=== PATIENT | male | born 1965 | race Two or more races ===

== ENCOUNTER 2016-10-20 12:51 | Inpatient (IN) | payer MEDICARE, MEDICAID ==
[~2016-10-20] VITALS: Ht 167.6 cm; Wt 72.6 kg
[~2016-10-20 12:51] MED LIST: ABILIFY20 MG; BACTRIM 400-801 EACH; BACTRIM DS TAB1 EAC1 ORAL; CEFEPIME-D2 GM/50 ML IVPB; CIPRO500 MG PO; LEVOFLOXACIN500 MG ORAL; NORCO 10/3251 EA ORAL; NORVIR100 M2 PO; OXYCODONE HCL30 MG ORAL; OXYCONTIN PO; OXYCONTIN30 MG ORAL; PREZISTA800 MG PO; PROSCAR5 MG ORAL; STRIBILD TABLE1 EACH; TIVICAY50 MG; TRUVADA1 TAB; VANCOMYCIN1 GM/2502 IVPB; ZYVOX600 MG ORAL
[2016-10-20] MEDS ORDERED: Levalbuterol Inh UD 1.25mg/0.5ml HHN ONE (13:15)
[2016-10-20] MEDS ORDERED: Ipratropium 0.02% Inh Soln 2.5ml UD HHN ONE (13:15)
[2016-10-20 14:18] VITALS: BP 111/64
[2016-10-20 14:28] LABS: MEAN CORPUSCULAR HEMOGLOBIN 32.6 PG (27.0-31.0); MEAN CORPUSCULAR HGB CONC 34.2 G/DL (32.0-36.0); MEAN CORPUSCULAR VOLUME 95 FL (80-99); MEAN PLATELET VOLUME 7.2 FL (6.5-10.1); PLATELET COUNT 135 K/UL (150-450); RED BLOOD COUNT 4.35 M/UL (4.70-6.10); RED CELL DISTRIBUTION WIDTH 12.5 % (11.6-14.8)
--- NOTE | 2016-10-20 14:30 | Emergency Room Report ---
History of Present Illness General Chief Complaint: Upper Respiratory Illness Source: Patient (EAN DIAZ M.D.) Present Illness HPI 50-year-old no presents to ED for evaluation. States the last few days he's had a productive cough, chills, bodyaches and fever. States he feels very weak with no appetite. Denies any nausea or vomiting. Denies any diarrhea. States he did not receive a flu vaccination. History of HIV testing she is compliant with his medications. No other aggravating relieving factors. Denies any other associated symptoms. PMD is Dr. Nicole (EAN DIAZ M.D.) Allergies: Coded Allergies: No Known Allergies (Unverified , 10/26/13) Patient History Past Medical History: HIV Past Surgical History: none Pertinent Family History: none Social History: Denies: alcohol use, drug use, smoking Immunizations: UTD Reviewed Nursing Documentation: PMH: Agreed, PSxH: Agreed (EAN DIAZ M.D.) Nursing Documentation-PMH Past Medical History: No History, Except For Hx Cardiac Problems: No - HIV Hx Cancer: No Hx Gastrointestinal Problems: No Hx Neurological Problems: No Hx Headaches: Yes (EAN DIAZ M.D.) Review of Systems All Other Systems: negative except mentioned in HPI (EAN DIAZ M.D.) Physical Exam Vital Signs Date Time Temp Pulse Resp B/P Pulse Ox O2 Delivery O2 Flow Rate FiO2 10/20/16 13:01 99.0 113 18 87/57 91 Room Air 10/20/16 13:30 2.0 Sp02 EP Interpretation: reviewed, normal General Appearance: no apparent distress, alert, GCS 15, non-toxic Head: normocephalic Eyes: bilateral eye PERRL, bilateral eye normal inspection ENT: normal ENT inspection Neck: normal inspection Respiratory: chest non-tender, crackles, speaking full sentences Cardiovascular #1: tachycardia Gastrointestinal: normal bowel sounds, non tender, soft, non-distended, no guarding, no rebound Rectal: deferred Genitourinary: no CVA tenderness Musculoskeletal: normal inspection Neurologic: alert, oriented x3, responsive, motor strength/tone normal, sensory intact, speech normal Psychiatric: normal inspection Skin: normal inspection Lymphatic: normal inspection (EAN DIAZ M.D.) Medical Decision Making Diagnostic Impression: Primary Impression: Influenza A Additional Impressions: HIV disease dehydration Hyponatremia ARF (acute renal failure) Qualified Codes: N17.9 - Acute kidney failure, unspecified ER Course Hospital Course 50-year-old male presents to ED with cough, fever, dizziness and weakness Differential diagnoses include: Pneumonia, CHF exacerbation, pneumothorax, fluid overload Clinical course Patient placed on stretcher. On secured entrance monitor. After initial history and physical, I ordered nebulizer treatments. I ordered labs, IV fluids, EKG, chest x-ray, blood cultures, UA. Labs -no leukocytosis, hemoglobin/hematocrit stable, Na 130, Cr 1.3, lactate okay troponins negative CXR - R atelectasis, L effusion EKG - NSR, tachycardia, no ischemic changes Influenza A + tachycardia improving with IV fluids. given abx. given tamiflu Case discussed with Dr. Tapia (covering for Dr Nicole) and he agreed to the patient to his service for further care and support I feel this is a highly complex case requiring extensive working including EKG/ Rhythm strip, Xray/CT/US, Blood/urine lab work, repeat exams while in ED, and administration of strong opiates/narcotics for pain control, admission to hospital or close patient follow up. Diagnosis - influenza A, HIV, dehydration, hyponatremia, ARF Patient admitted to floor in serious condition Labs Test 10/20/16 13:38 10/20/16 13:40 10/20/16 14:05 White Blood Count 9.0 K/UL (4.8-10.8) Red Blood Count 4.35 M/UL (4.70-6.10) Hemoglobin 14.2 G/DL (14.2-18.0) Hematocrit 41.4 % (42.0-52.0) Mean Corpuscular Volume 95 FL (80-99) Mean Corpuscular Hemoglobin 32.6 PG (27.0-31.0) Mean Corpuscular Hemoglobin Concent 34.2 G/DL (32.0-36.0) Red Cell Distribution Width 12.5 % (11.6-14.8) Platelet Count 135 K/UL (150-450) Mean Platelet Volume 7.2 FL (6.5-10.1) Neutrophils (%) (Auto) % (45.0-75.0) Lymphocytes (%) (Auto) % (20.0-45.0) Monocytes (%) (Auto) % (1.0-10.0) Eosinophils (%) (Auto) % (0.0-3.0) Basophils (%) (Auto) % (0.0-2.0) Differential Total Cells Counted 100 Neutrophils % (Manual) 75 % (45-75) Lymphocytes % (Manual) 17 % (20-45) Monocytes % (Manual) 4 % (1-10) Eosinophils % (Manual) 0 % (0-3) Basophils % (Manual) 0 % (0-2) Band Neutrophils 4 % (0-8) Platelet Estimate Adequate Platelet Morphology Normal Red Blood Cell Morphology Normal Sodium Level 130 mEQ/L (135-145) Potassium Level 4.0 mEQ/L (3.4-4.9) Chloride Level 88 mEQ/L (98-107) Carbon Dioxide Level 25 mEQ/L (20-30) Anion Gap 17 (5-15) Blood Urea Nitrogen 13 mg/dL (7-23) Creatinine 1.3 mg/dL (0.7-1.2) Estimat Glomerular Filtration Rate 58.2 mL/min (>60) Glucose Level 107 mg/dL (74-106) Lactic Acid Level 0.90 mmol/L (0.66-2.22) Calcium Level 8.3 mg/dL (8.6-10.2) Total Bilirubin 0.5 mg/dL (0.0-1.2) Aspartate Amino Transf (AST/SGOT) 28 U/L (5-40) Alanine Aminotransferase (ALT/SGPT) 18 U/L (3-41) Alkaline Phosphatase 106 U/L (40-129) Total Creatine Kinase 55 U/L (38-174) Creatine Kinase MB < 1.5 ng/mL (< 6.7) Creatine Kinase MB Relative Index 2.7 Troponin I < 0.30 ng/mL (<=0.30) Pro-B-Type Natriuretic Peptide 101 pg/mL (0-125) Total Protein 7.3 g/dL (6.6-8.7) Albumin 4.2 g/dL (3.5-5.2) Globulin 3.1 g/dL Albumin/Globulin Ratio 1.3 (1.0-2.7) Lactate Dehydrogenase 170 U/L (135-230) Urine Color Yellow Urine Appearance Clear Urine pH 6 (4.5-8.0) Urine Specific Breaks 1.020 (1.005-1.035) Urine Protein 2+ (NEGATIVE) Urine Glucose (UA) Negative (NEGATIVE) Urine Ketones Negative (NEGATIVE) Urine Occult Blood 1+ (NEGATIVE) Urine Nitrite Negative (NEGATIVE) Urine Bilirubin 1+ (NEGATIVE) Urine Ictotest Negative Urine Urobilinogen 1 MG/DL (0.0-1.0) Urine Leukocyte Esterase 1+ (NEGATIVE) Urine RBC 0-2 /HPF (0 - 0) Urine WBC 0-2 /HPF (0 - 0) Urine Squamous Epithelial Cells Few /LPF (NONE/OCC) Urine Bacteria Few /HPF (NONE) (EAN DIAZ M.D.) ER Course The patient was endorsed to me by Dr. Diaz. Patient was noted to have a laboratory testing which showed evidence of influenza. Laboratory testing showed mild elevation of the creatinine. The patient was given IV fluids. The patient started on IV antibiotics. Patient was given Tamiflu for positive influenza. The patient is being admitted to the hospital because of a history of immunocompromise. Dr. Dagoberto Tapia was contacted for inpatient management after discussion with Dr. Boston gomes (Dung Juarez) EKG Diagnostic Results Rate: tachycardiac Rhythm: NSR ST Segments: no acute changes ASA given to the pt in ED: No (EAN DIAZ M.D.) Rhythm Strip Diag. Results EP Interpretation: yes Rhythm: NSR, no PVC's, no ectopy (EAN DIAZ M.D.) Chest X-Ray Diagnostic Results EP Interpretation: Yes Findings: no pneumothorax, no acute cardiopulmonary disease, other - R atelectasis. L effusion Number of Views: 1 (EAN DIAZ M.D.) Last Vital Signs Date Time Temp Pulse Resp B/P Pulse Ox O2 Delivery O2 Flow Rate FiO2 10/20/16 14:18 100.8 101 18 111/64 97 Nasal Cannula 2.0 Status: improved (EAN DIAZ M.D.) Disposition: ADMITTED INPATIENT Condition: Serious Referrals: CHINO NICOLE (PCP) EAN DIAZ M.D. Oct 20, 2016 14:30 Dung Juarez Oct 20, 2016 16:35
[2016-10-20 14:44] LABS: TROPONIN I < 0.30 ng/mL (<=0.30)
[2016-10-20 14:46] LABS: APPEARANCE,URINE CLEAR; KETONES,URINE NEGATIVE (NEGATIVE); LEUKOCYTE ESTERASE ,URINE 1+ (NEGATIVE); NITRITE,URINE NEGATIVE (NEGATIVE); PH,URINE 6 (4.5-8.0); PROTEIN,URINE 2+ (NEGATIVE); UROBILINOGEN,URINE 1 MG/DL (0.0-1.0)
[2016-10-20 14:47] LABS: ALANINE AMINOTRANSFERASE 18 U/L (3-41); ALBUMIN/GLOBULIN RATIO 1.3 (1.0-2.7); ANION GAP 17 (5-15); ASPARTATE AMINO TRANSFERASE 28 U/L (5-40); CALCIUM 8.3 mg/dL (8.6-10.2); CARBON DIOXIDE 25 mEQ/L (20-30); CHLORIDE 88 mEQ/L (98-107); CREATININE 1.3 mg/dL (0.7-1.2); GLOMERULAR FILTRATION RATE 58.2 mL/min (>60); HEMOLYSIS 32; SODIUM 130 mEQ/L (135-145); TOTAL PROTEIN 7.3 g/dL (6.6-8.7)
[2016-10-20 14:56] LABS: BACTERIA,URINE FEW /HPF; RBC,URINE 0-2 /HPF (0 - 0); SQUAMOUS EPITHELIAL CELL,UR FEW /LPF (NONE/OCC); WBC,URINE 0-2 /HPF (0 - 0)
[2016-10-20 14:58] LABS: ICTOTEST NEGATIVE
[2016-10-20 14:58] LABS: CKMB < 1.5 ng/mL (< 6.7)
[2016-10-20 15:00] LABS: BAND NEUTROPHILS % (MANUAL) 4 % (0-8); LYMPHOCYTES % (MANUAL) 17 % (20-45); NEUTROPHILS % (MANUAL) 75 % (45-75); TOTAL CELLS COUNTED 100
[2016-10-20] MEDS ORDERED: Azithromycin 500 MG in NS 275 ML IV ONE (15:00)
[2016-10-20] MEDS ORDERED: Oseltamivir 75mg cap ORAL ONE (15:00)
[2016-10-20] MEDS ORDERED: cefTRIAXone 1 GM in NS 55 ML IV ONE (15:00)
[2016-10-20 15:01] LABS: BASOPHILS % (MANUAL) 0 % (0-2); EOSINOPHILS % (MANUAL) 0 % (0-3); PLATELET ESTIMATE ADEQUATE; PLATELET MORPHOLOGY NORMAL
[2016-10-20] MEDS ORDERED: Azithromycin Inj IV ONE (15:07)
[2016-10-20 16:42] VITALS: BP 95/55
[2016-10-20 20:00] VITALS: BP 108/61
[2016-10-21] VITALS: BP 104/67
[2016-10-21 04:00] VITALS: BP 113/67
[2016-10-21 07:53] LABS: BASOPHILS % (AUTO) 0.4 % (0.0-2.0); EOSINOPHILS % (AUTO) 0.1 % (0.0-3.0); LYMPHOCYTES % (AUTO) 18.7 % (20.0-45.0); MEAN CORPUSCULAR HEMOGLOBIN 32.4 PG (27.0-31.0); MEAN CORPUSCULAR VOLUME 95 FL (80-99); MEAN PLATELET VOLUME 6.5 FL (6.5-10.1); MONOCYTES % (AUTO) 8.3 % (1.0-10.0); NEUTROPHILS % (AUTO) 72.4 % (45.0-75.0); PLATELET COUNT 124 K/UL (150-450); RED BLOOD COUNT 4.22 M/UL (4.70-6.10); RED CELL DISTRIBUTION WIDTH 12.5 % (11.6-14.8); WHITE BLOOD COUNT 6.5 K/UL (4.8-10.8)
[2016-10-21 08:08] LABS: ANION GAP 12 (5-15); CALCIUM 8.1 mg/dL (8.6-10.2); CARBON DIOXIDE 27 mEQ/L (20-30); CHLORIDE 94 mEQ/L (98-107); CREATININE 0.7 mg/dL (0.7-1.2); GLOMERULAR FILTRATION RATE > 60 mL/min (>60); HEMOLYSIS 1; POTASSIUM 3.9 mEQ/L (3.4-4.9); SODIUM 133 mEQ/L (135-145)
[2016-10-21 08:15] VITALS: BP 109/71
[2016-10-21] MEDS: ARIPiprazole 10mg tab ORAL SCH (10:01)
[2016-10-21] MEDS: Oseltamivir 75mg cap ORAL SCH ×2 (10:01→17:30)
[2016-10-21 12:15] VITALS: BP 98/61
[2016-10-21] MEDS: Ritonavir 100mg tab ORAL SCH ×2 (12:59→21:00)
[2016-10-21] MEDS: Dolutegravir Sodium 50mg tab ORAL SCH (13:00)
--- NOTE | 2016-10-21 13:12 | History & Physical ---
History and Physical History & Physicial Dictated no. [id number]. DEBORAH MILLER Oct 21, 2016 13:12
--- NOTE | 2016-10-21 14:03 | Infectious Diseases Prog Note ---
Assessment/Plan Assessment/Plan Full consult dictated: A) 1) influenza A + infection 2) possible cap pna, uri/bronchitis 3) hiv, anti-retrovirals, cd4 > 200 per patient (patient does not remember exact level) P) 1) tamiflu, rocephin, azithromycin 2) check sc, labs and chest x-ray 3) thank you Subjective Allergies: Coded Allergies: No Known Allergies (Unverified , 10/26/13) Objective Vital Signs Last 24 Hour Vital Signs Date Time Temp Pulse Resp B/P Pulse Ox O2 Delivery O2 Flow Rate FiO2 10/21/16 12:15 97.9 86 21 98/61 97 Room Air 10/21/16 08:15 97.6 69 20 109/71 97 Nasal Cannula 2.0 10/21/16 07:48 97.6 10/21/16 04:00 99.1 80 20 113/67 96 Room Air 10/21/16 00:00 99.3 78 20 104/67 100 Room Air 2.0 10/20/16 20:00 98.2 87 20 108/61 98 Nasal Cannula 2.0 10/20/16 16:44 99.9 93 17 95/55 97 Nasal Cannula 2.0 10/20/16 16:42 99.9 93 17 95/55 97 Nasal Cannula 2.0 10/20/16 14:18 100.8 101 18 111/64 97 Nasal Cannula 2.0 Height (Feet): 5 Height (Inches): 6.00 Weight (Pounds): 160 Microbiology Date/Time Source Procedure Growth Status 10/20/16 13:38 Nasal Nares Influenza Types A,B Antigen (JANA) - Final Complete Laboratory Tests Test 10/20/16 14:05 10/21/16 06:20 Urine Color Yellow Urine Appearance Clear Urine pH 6 (4.5-8.0) Urine Specific Beattie 1.020 (1.005-1.035) Urine Protein 2+ (NEGATIVE) H Urine Glucose (UA) Negative (NEGATIVE) Urine Ketones Negative (NEGATIVE) Urine Occult Blood 1+ (NEGATIVE) H Urine Nitrite Negative (NEGATIVE) Urine Bilirubin 1+ (NEGATIVE) H Urine Ictotest Negative Urine Urobilinogen 1 MG/DL (0.0-1.0) H Urine Leukocyte Esterase 1+ (NEGATIVE) H Urine RBC 0-2 /HPF (0 - 0) H Urine WBC 0-2 /HPF (0 - 0) Urine Squamous Epithelial Cells Few /LPF (NONE/OCC) Urine Bacteria Few /HPF (NONE) White Blood Count 6.5 K/UL (4.8-10.8) Red Blood Count 4.22 M/UL (4.70-6.10) L Hemoglobin 13.7 G/DL (14.2-18.0) L Hematocrit 40.2 % (42.0-52.0) L Mean Corpuscular Volume 95 FL (80-99) Mean Corpuscular Hemoglobin 32.4 PG (27.0-31.0) H Mean Corpuscular Hemoglobin Concent 34.0 G/DL (32.0-36.0) Red Cell Distribution Width 12.5 % (11.6-14.8) Platelet Count 124 K/UL (150-450) L Mean Platelet Volume 6.5 FL (6.5-10.1) Neutrophils (%) (Auto) 72.4 % (45.0-75.0) Lymphocytes (%) (Auto) 18.7 % (20.0-45.0) L Monocytes (%) (Auto) 8.3 % (1.0-10.0) Eosinophils (%) (Auto) 0.1 % (0.0-3.0) Basophils (%) (Auto) 0.4 % (0.0-2.0) Sodium Level 133 mEQ/L (135-145) L Potassium Level 3.9 mEQ/L (3.4-4.9) Chloride Level 94 mEQ/L (98-107) L Carbon Dioxide Level 27 mEQ/L (20-30) Anion Gap 12 (5-15) Blood Urea Nitrogen 9 mg/dL (7-23) Creatinine 0.7 mg/dL (0.7-1.2) Estimat Glomerular Filtration Rate > 60 mL/min (>60) Glucose Level 94 mg/dL (74-106) Calcium Level 8.1 mg/dL (8.6-10.2) L Current Medications Medications (Trade) Dose Ordered Sig/Jeff Route PRN Reason Start Time Stop Time Status Last Admin Dose Admin Acetaminophen (Tylenol) 650 mg Q4H PRN ORAL Mild Pain/Temp > 100.5 10/21/16 01:45 11/20/16 01:44 10/21/16 06:49 Aripiprazole (Abilify) 20 mg DAILY ORAL 10/21/16 09:00 11/20/16 08:59 10/21/16 10:01 Azithromycin/ Dextrose (Zithromax/D5W) 275 ml @ 275 mls/hr Q24HRS IV 10/21/16 18:00 10/27/16 18:59 Ceftriaxone Sodium 1 gm/ Dextrose 55 ml @ 110 mls/hr Q24H IVPB 10/21/16 16:00 10/28/16 15:59 Darunavir (Prezista) 800 mg DAILY ORAL 10/21/16 12:00 11/20/16 11:59 10/21/16 12:59 Dolutegravir Sodium (Tivicay) 50 mg DAILY ORAL 10/21/16 12:00 11/20/16 11:59 10/21/16 13:00 Finasteride (Proscar) 5 mg DAILY ORAL 10/21/16 09:00 11/20/16 08:59 10/21/16 10:01 Oseltamivir Phosphate (Tamiflu) 75 mg TWICE A DAY ORAL 10/21/16 09:00 10/26/16 08:59 10/21/16 10:01 Ritonavir (Norvir) 100 mg Q12HR ORAL 10/21/16 12:00 11/20/16 11:59 10/21/16 12:59 EDGAR BLACK 5, 2017 14:03
[2016-10-21] MEDS: cefTRIAXone 1 GM in D5W 55 ML IVPB SCH (15:41)
[2016-10-21 16:00] VITALS: BP 123/70
[2016-10-21] MEDS: Azithromycin 500 MG in D5W 275 ML IV SCH (17:28)
[2016-10-21 20:00] VITALS: BP 101/68
[2016-10-22] VITALS: BP 94/55
--- NOTE | 2016-10-22 00:18 | History and Physical Report ---
DATE OF ADMISSION: 10/20/2016 CHIEF COMPLAINT: This is a 50-year-old male with a history of human immunodeficiency virus, who presents with complaint of cough, fever, chills, and phlegm for two days. HISTORY OF PRESENT ILLNESS: Began two days prior to admission. The patient began to experience a cough. The patient states cough is productive of a greenish sputum. The patient also complains of subjective fevers and chills. The patient presented to [facility]. The patient was found to be influenza A positive. The patient was admitted for influenza A and pneumonia. PAST MEDICAL HISTORY: Significant for: 1. Human immunodeficiency virus. 2. AIDS-defining illness (Kaposi's sarcoma.) 3. Hepatitis C. 4. Bipolar schizoaffective disorder. PAST SURGICAL HISTORY: The patient denies. CURRENT MEDICATIONS: 1. Abilify 20 mg one tablet p.o. daily. 2. Prezista 800 mg one tablet p.o. daily. 3. Tivicay 50 mg one tablet p.o. daily. 4. Finasteride 5 mg one tablet p.o. daily. 5. Oxycodone 30 mg one tablet p.o. q.4 h. p.r.n. 6. Norvir 100 mg one tablet p.o. daily. ALLERGIES: No known drug allergies. SOCIAL HISTORY: The patient is single and is disabled. The patient admits to tobacco use of one-half pack per day. The patient admits to occasional alcohol use. The patient previously has smoked methamphetamine, has not smoked methamphetamine for some time. REVIEW OF SYSTEMS: Constitutional: The patient denies weight loss or weight gain. The patient does complain of fevers and chills as above. HEENT: The patient denies ear or throat pain. The patient denies headache. Cardiovascular: The patient denies palpitations or chest pain. Chest: The patient complains of cough as above. The patient denies wheezes. Abdomen: The patient denies nausea, vomiting, diarrhea, or constipation. Genitourinary: The patient denies dysuria or increased frequency of urination. Neuromuscular: The patient denies seizures or generalized weakness. PHYSICAL EXAMINATION: VITAL SIGNS: Temperature 98.2 degrees, respirations 20, pulse 87, blood pressure 106/61, and pulse ox 98% on two liters nasal cannula. GENERAL: The patient is a well-developed and well-nourished male, who is somnolent, but arousable. HEENT: Pupils are equal and responsive to light and accommodation. Extraocular movements are intact. NECK: Supple without lymphadenopathy. CHEST: Decreased breath sounds in bilateral bases. Otherwise, clear to auscultation bilaterally without wheezes or rales. CARDIOVASCULAR: Regular rhythm and rate. S1 and S2 are normal without murmurs, rubs, or gallops. ABDOMEN: Soft, nontender, and nondistended. Positive bowel sounds. No evidence of hepatosplenomegaly. Currently, no rebound or guarding noted. EXTREMITIES: Negative for clubbing, cyanosis, or edema. RECTAL/GENITALIA: Refused. NEUROLOGIC: Cranial nerves II through XII are grossly intact without focal deficits. Motor strength is 5/5 bilaterally. Deep tendon reflexes are 2+ plantar. LABORATORY STUDIES: WBC 9.7, hemoglobin 14.2, hematocrit 41.4, and platelets 135,000. Sodium 130, potassium 4.0, chloride 88, CO2 25, BUN 13, creatinine 1.3, and glucose 107. A chest x-ray is pending. An influenza culture revealed influenza A positive. ASSESSMENT: This is a 50-year-old male. 1. Influenza A positive. 2. Pneumonia. 3. Acquired immunodeficiency syndrome. 4. Kaposi's sarcoma. 5. Hepatitis C. 6. Bipolar schizoaffective disorder. TREATMENT: 1. Influenza A. An Infectious Disease consultation is pending with Dr. Calderon. The patient has been started empirically on Tamiflu. We will follow recommendations Dr. Calderon. 2. Pneumonia. The patient has been started empirically on azithromycin and ceftriaxone intravenously. Pneumonia may be viral secondary to influenza A versus bacterial. A sputum culture is pending. An Infectious Disease consultation has been obtained with Dr. Calderon. 3. Hepatitis C. The patient is status post interferon treatment. 4. Bipolar schizoaffective disorder. Continue Abiliy. Dagoberto Tapia M.D. DR: OLGA JOB#: [id number] CC:
--- NOTE | 2016-10-22 02:38 | Consultation ---
DATE OF CONSULTATION: INFECTIOUS DISEASE CONSULTATION CONSULTING PHYSICIAN: Lynnette Calderon M.D. ATTENDING PHYSICIAN: Dagoberto Tapia M.D. REASON FOR CONSULTATION: Influenza A infection, possible pneumonia, community-acquired pneumonia, and antibiotic management. CHIEF COMPLAINT: The patient's chief complaint coming in to the hospital is fevers, congestion, shortness of breath, and yellow green sputum production. HISTORY OF PRESENT ILLNESS: This is a very pleasant 50-year-old male with history of HIV. He states his T-cell count is over 200. Over the last several days, the patient noted cough, congestion, and yellow green sputum production. The patient was admitted and had fevers. It was noted on influenza screen that the patient was influenza A positive, so he has influenza A infection. The patient certainly has respiratory infection, bronchitis, and also could have community-acquired pneumonia. Chest x-ray yesterday was reviewed and showed linear opacities, most likely cannot rule out, but it could be infiltrate, cannot rule that out, it cannot be excluded. An Infectious Disease consultation was requested. The patient will be placed on Rocephin, azithromycin, and Tamiflu. Sputum culture has been ordered. MAR was noted. Orders were noted. Notes and records were reviewed. Case was discussed with RN. Case was also discussed with Dr. Tapia and also discussed with the patient's primary HIV doctor in the outpatient setting, Dr. Gregory Mead. PAST MEDICAL HISTORY: Past medical history includes the history of the following: The patient has a past medical history of HIV. His T-cell count is over 200. He does not know the exact amount. He also is on antiretroviral therapy. He also has a history of Kaposi's sarcoma. He has a history of headaches. No history of diabetes or hypertension. No history of coronary artery disease. Other past medical history, he has a history of AIDS in the past, history of hepatitis C, history of Dietz catheter infection, hyponatremia, history of dehydration, anxiety, and history of PICC lines in the past. Please see past medical history in medical order. MEDICATIONS: Upon reviewing the MAR, the patient is on the following medications. The patient is on erythromycin, Rocephin, Tivicay, Prezista, Norvir, Tamiflu, Proscar, Abilify, and Tylenol. Please see medications in medical order. ALLERGIES: No known drug allergies. No antibiotic allergies. SOCIAL HISTORY: Positive for smoking. No alcohol or drug abuse. FAMILY HISTORY: Noncontributory. No mention of exposure to tuberculosis or cancer. REVIEW OF SYSTEMS: Constitutional: Fatigue, fevers, and chills. No weight loss. No night sweats. Head And Neck: No thrush or dysphagia. Cardiac: No chest pain or palpitations. GI: No nausea, vomiting, or diarrhea. : No dysuria or frequency. No Dietz. Pulmonary: Congestion, shortness of breath, and yellow green sputum production. Skin: No rash or itching. Extremities: No extremity pain. Neurologic: No seizures. PHYSICAL EXAMINATION: VITAL SIGNS: T-max is 100.8 degrees, temperature 97.9 degrees, pulse rate 60, respiratory rate 21, blood pressure 98/61, and saturation 97%. GENERAL: Alert and responsive, in no acute distress. HEENT: Head and Neck: Oral exam, no thrush. Eye exam, no icterus. Neck is supple. No JVD. No sinus tenderness. Normocephalic. No facial droop. No neck stiffness. HEART: Regular. No gallop or murmur. No friction or rub. LUNGS: Bilateral rhonchi and possible rales at the bases. ABDOMEN: Soft. Positive bowel sounds. Nontender. SKIN: No rash or dermatitis. MUSCULOSKELETAL: No effusion or contractures. Legs are without cellulitis. PERIPHERAL VASCULAR: No cyanosis or gangrene. RECTAL: Deferred. GENITOURINARY: No Dietz. LINE: Line site is without phlebitis. No CVA tenderness. NEUROLOGIC: Intact and nonfocal. Alert and oriented x3. LABORATORY DATA: Laboratory data is as follows: White count on admission 9.0 and now white count is 6.5, and hemoglobin 13.7. Creatinine is 0.7 and on admission was 1.3. Sodium 130 and now it is 133. LFTs are noted. Urinalysis was 0 to 2 white blood cells. Cultures are pending. Sputum culture is pending. Influenza screen was positive for influenza and negative for influenza B. Chest x-ray from 10/20/2016 was noted. The patient had poor inspiration passage, which could represent atelectasis, could not exclude infiltrate on the left. ASSESSMENT AND PLAN: 1. The patient has a influenza A viral infection. The patient has possibly community-acquired pneumonia, upper respiratory infection, bronchitis, and fevers. Continue Rocephin, azithromycin, and Tamiflu to cover community-acquired pneumonia and influenza A viral infection. The patient is at a significant risk to have community-acquired pneumonia with history of human immunodeficiency virus and also influenza A. Continue antibiotics, Rocephin and azithromycin. Check sputum culture, labs, and chest x-ray. 2. The patient will need Tamiflu for a total of five days for the influenza viral infection. 3. Isolation for influenza A. 4. Human immunodeficiency virus and acquired immunodeficiency syndrome. T-cell count over 200. Continue on antiretroviral therapy. 5. History of hepatitis C. 6. History of Perm-A-Cath infection. 7. History of Kaposi's sarcoma. 8. History of dehydration. 9. History of . 10. No diabetes or hypertension. 11. History of cancer, which includes Kaposi's sarcoma. 12. No history of cerebrovascular accident. 13. Allergies are negative. 14. MAR was noted. 15. Case was discussed with RN. 16. Socially positive for smoking in the past. No alcohol or drug abuse. 17. Family history is noncontributory. 18. Continue treatment per primary independent beauty consultant, Dr. Tapia. 19. Case was discussed with Dr. Dagoberto Tapia. Thank you. I will follow. Lynnette Calderon M.D. DR: SHELLY JOB#: [id number] CC:
[2016-10-22 04:00] VITALS: BP 121/78
[2016-10-22 06:00] VITALS: BP 127/78
[2016-10-22 07:09] LABS: BASOPHILS % (AUTO) 0.5 % (0.0-2.0); LYMPHOCYTES % (AUTO) 28.4 % (20.0-45.0); MEAN CORPUSCULAR HEMOGLOBIN 32.2 PG (27.0-31.0); MEAN CORPUSCULAR VOLUME 95 FL (80-99); MEAN PLATELET VOLUME 6.9 FL (6.5-10.1); NEUTROPHILS % (AUTO) 59.1 % (45.0-75.0); PLATELET COUNT 143 K/UL (150-450); RED BLOOD COUNT 4.72 M/UL (4.70-6.10); RED CELL DISTRIBUTION WIDTH 12.3 % (11.6-14.8); WHITE BLOOD COUNT 4.5 K/UL (4.8-10.8)
[2016-10-22 07:23] LABS: ANION GAP 12 (5-15); CALCIUM 8.9 mg/dL (8.6-10.2); CARBON DIOXIDE 28 mEQ/L (20-30); CHLORIDE 97 mEQ/L (98-107); CREATININE 0.7 mg/dL (0.7-1.2); GLOMERULAR FILTRATION RATE > 60 mL/min (>60); HEMOLYSIS 5; SODIUM 137 mEQ/L (135-145)
--- NOTE | 2016-10-22 08:00 | Diagnostic Imaging Report ---
Indication: Shortness of breath Technique: XRAY CHEST 1 V Comparison: 06/25/15 Findings: There is poor inspiration with linear opacities of the lung bases. Cardiomediastinal silhouette is stable. There is no pneumothorax or obvious pleural effusion. Osseous structures are stable. Impression: Poor inspiration with linear lung base opacities which could represent atelectasis. Subtle infiltrate in the left base not excluded. Clinical correlation/followup recommended.
[2016-10-22 08:02] VITALS: BP 110/58
[2016-10-22] MEDS: ARIPiprazole 10mg tab ORAL SCH (09:30)
[2016-10-22] MEDS: Oseltamivir 75mg cap ORAL SCH ×2 (09:30→18:28)
[2016-10-22] MEDS: Dolutegravir Sodium 50mg tab ORAL SCH (09:31)
[2016-10-22] MEDS: Ritonavir 100mg tab ORAL SCH ×2 (09:32→20:40)
--- NOTE | 2016-10-22 11:28 | Internal Med Progress Note ---
Subjective Date of Service: Oct 22, 2016 Physician Name Deborah Miller Attending Physician Deborah Miller Current Medications Medications (Trade) Dose Ordered Sig/Jeff Route PRN Reason Start Time Stop Time Status Last Admin Dose Admin Acetaminophen (Tylenol) 650 mg Q4H PRN ORAL Mild Pain/Temp > 100.5 10/21/16 01:45 11/20/16 01:44 10/21/16 06:49 Aripiprazole (Abilify) 20 mg DAILY ORAL 10/21/16 09:00 11/20/16 08:59 10/22/16 09:30 Azithromycin/ Dextrose (Zithromax/D5W) 275 ml @ 275 mls/hr Q24HRS IV 10/21/16 18:00 10/27/16 18:59 10/21/16 17:28 Ceftriaxone Sodium 1 gm/ Dextrose 55 ml @ 110 mls/hr Q24H IVPB 10/21/16 16:00 10/28/16 15:59 10/21/16 15:41 Darunavir (Prezista) 800 mg DAILY ORAL 10/21/16 12:00 11/20/16 11:59 10/22/16 09:42 Dolutegravir Sodium (Tivicay) 50 mg DAILY ORAL 10/21/16 12:00 11/20/16 11:59 10/22/16 09:31 Finasteride (Proscar) 5 mg DAILY ORAL 10/21/16 09:00 11/20/16 08:59 10/22/16 09:31 Oseltamivir Phosphate (Tamiflu) 75 mg TWICE A DAY ORAL 10/21/16 09:00 10/26/16 08:59 10/22/16 09:30 Ritonavir (Norvir) 100 mg Q12HR ORAL 10/21/16 12:00 11/20/16 11:59 10/22/16 09:32 Allergies: Coded Allergies: No Known Allergies (Unverified , 10/26/13) ROS Limited/Unobtainable: No Constitutional: Reports: chills, fever HEENT: Reports: no symptoms Cardiovascular: Reports: no symptoms Respiratory: Reports: no symptoms Gastrointestinal/Abdominal: Reports: no symptoms Genitourinary: Reports: no symptoms Neurologic/Psychiatric: Reports: no symptoms Subjective 50 YO M with HIV/AIDS admitted with Influenza A and pneumonia. C/O cough Objective Last Vital Signs Date Time Temp Pulse Resp B/P Pulse Ox O2 Delivery O2 Flow Rate FiO2 10/22/16 08:02 97.7 76 20 110/58 96 Room Air 10/21/16 08:15 2.0 General Appearance: WD/WN, no apparent distress, alert EENT: PERRL/EOMI, normal ENT inspection Neck: non-tender, normal alignment, supple Cardiovascular: normal peripheral pulses, normal rate, regular rhythm, no gallop/murmur, no JVD Respiratory/Chest: no accessory muscle use, crackles/rales, rhonchi - bilaterally, expiratory wheezing Abdomen: normal bowel sounds, non tender, soft, no organomegaly, no mass Extremities: normal range of motion Neurologic: artificial fly tier II-XII grossly normal, no motor/sensory deficits Skin: normal pigmentation, warm/dry Laboratory Tests Test 10/22/16 06:00 White Blood Count 4.5 K/UL (4.8-10.8) L Red Blood Count 4.72 M/UL (4.70-6.10) Hemoglobin 15.2 G/DL (14.2-18.0) Hematocrit 44.8 % (42.0-52.0) Mean Corpuscular Volume 95 FL (80-99) Mean Corpuscular Hemoglobin 32.2 PG (27.0-31.0) H Mean Corpuscular Hemoglobin Concent 34.0 G/DL (32.0-36.0) Red Cell Distribution Width 12.3 % (11.6-14.8) Platelet Count 143 K/UL (150-450) L Mean Platelet Volume 6.9 FL (6.5-10.1) Neutrophils (%) (Auto) 59.1 % (45.0-75.0) Lymphocytes (%) (Auto) 28.4 % (20.0-45.0) Monocytes (%) (Auto) 11.0 % (1.0-10.0) H Eosinophils (%) (Auto) 1.0 % (0.0-3.0) Basophils (%) (Auto) 0.5 % (0.0-2.0) Sodium Level 137 mEQ/L (135-145) Potassium Level 4.0 mEQ/L (3.4-4.9) Chloride Level 97 mEQ/L (98-107) L Carbon Dioxide Level 28 mEQ/L (20-30) Anion Gap 12 (5-15) Blood Urea Nitrogen 9 mg/dL (7-23) Creatinine 0.7 mg/dL (0.7-1.2) Estimat Glomerular Filtration Rate > 60 mL/min (>60) Glucose Level 94 mg/dL (74-106) Calcium Level 8.9 mg/dL (8.6-10.2) Microbiology Date/Time Source Procedure Growth Status 10/20/16 13:42 Blood Blood Culture - Preliminary NO GROWTH AFTER 24 HOURS Resulted 10/20/16 13:38 Blood Blood Culture - Preliminary NO GROWTH AFTER 24 HOURS Resulted 10/20/16 14:05 Nasal Nares MRSA Culture - Final NO METHICILLIN RESISTANT STAPH AUREUS... Complete 10/20/16 13:38 Nasal Nares Influenza Types A,B Antigen (JANA) - Final Complete Intake and Output 10/21/16 10/22/16 19:00 07:00 Intake Total 480 ml 120 ml Balance 480 ml 120 ml Intake Oral 480 ml 120 ml # Voids 2 Assessment/Plan Problem List: (1) Hepatitis C (2) Schizoaffective disorder, bipolar type Assessment & Plan: Continue abilify (3) AIDS Assessment & Plan: Cont HAART per ID (4) HIV disease (5) Kaposi sarcoma (6) Influenza A Assessment & Plan: Continue Tamiflu. See ID note. (7) Fever (8) Pneumonia Assessment & Plan: Continue ceftriaxone and azithromycin per ID Status: not improved DEBORAH MILLER Oct 22, 2016 11:28
[2016-10-22 11:50] VITALS: BP 124/75
--- NOTE | 2016-10-22 12:36 | Diagnostic Imaging Report ---
Indication: Chest Pain Comparison: 10/20/16 A single view chest radiograph was obtained. Findings: Previously demonstrated left basilar lung disease has resolved. Cardiomediastinal appearance is within normal limits for age. Pulmonary vascularity is appropriate. The diaphragmatic contour is smooth and costophrenic angles are sharp. No pleural effusions are identified. The bones are unremarkable. Impression: No acute findings
[2016-10-22 16:00] VITALS: BP 106/68
[2016-10-22] MEDS: cefTRIAXone 1 GM in D5W 55 ML IVPB SCH (16:16)
[2016-10-22] MEDS: Azithromycin 500 MG in D5W 275 ML IV SCH (18:29)
[2016-10-23 00:43] VITALS: BP 115/44
[2016-10-23 04:00] VITALS: BP 93/51
[2016-10-23 07:19] LABS: ANION GAP 15 (5-15); CALCIUM 8.8 mg/dL (8.6-10.2); CARBON DIOXIDE 25 mEQ/L (20-30); CHLORIDE 96 mEQ/L (98-107); CREATININE 0.6 mg/dL (0.7-1.2); GLOMERULAR FILTRATION RATE > 60 mL/min (>60); HEMOLYSIS 1; POTASSIUM 3.5 mEQ/L (3.4-4.9); SODIUM 136 mEQ/L (135-145)
[2016-10-23 07:25] LABS: BASOPHILS % (AUTO) 0.8 % (0.0-2.0); LYMPHOCYTES % (AUTO) 29.9 % (20.0-45.0); MEAN CORPUSCULAR HEMOGLOBIN 32.3 PG (27.0-31.0); MEAN CORPUSCULAR HGB CONC 34.3 G/DL (32.0-36.0); MEAN CORPUSCULAR VOLUME 94 FL (80-99); MEAN PLATELET VOLUME 6.3 FL (6.5-10.1); NEUTROPHILS % (AUTO) 58.3 % (45.0-75.0); PLATELET COUNT 179 K/UL (150-450); RED BLOOD COUNT 4.81 M/UL (4.70-6.10); RED CELL DISTRIBUTION WIDTH 12.2 % (11.6-14.8)
[2016-10-23 08:00] VITALS: BP 112/67
[2016-10-23] MEDS: Ritonavir 100mg tab ORAL SCH ×2 (09:57→20:54)
[2016-10-23] MEDS: Oseltamivir 75mg cap ORAL SCH ×2 (09:57→17:39)
[2016-10-23] MEDS: ARIPiprazole 10mg tab ORAL SCH (09:57)
[2016-10-23] MEDS: Dolutegravir Sodium 50mg tab ORAL SCH (09:57)
[2016-10-23 12:00] VITALS: BP 126/71
--- NOTE | 2016-10-23 12:53 | Infectious Diseases Prog Note ---
Assessment/Plan Assessment/Plan ASSESSMENT AND PLAN: 1. Influenza A viral infection with uri/bronchitis, chest x-ray negative for pna - clinically much improved, fevers resolved 2. continue abx for 3 days more - on rocephin, azithromycin and tamiflu, can transition to oral abx soon 3. Isolation for influenza A. 4. Human immunodeficiency virus and acquired immunodeficiency syndrome. T-cell count over 200. Continue on antiretroviral therapy. 5. History of hepatitis C. 6. History of Perm-A-Cath infection. 7. History of Kaposi's sarcoma. 8. History of dehydration. 9. History of cad and headaches 10. No diabetes or hypertension. 11. History of cancer, which includes Kaposi's sarcoma. 12. No history of cerebrovascular accident. 13. Allergies are negative. 14. MAR was noted. 15. Case was discussed with RN. 16. Socially positive for smoking in the past. No alcohol or drug abuse. 17. Family history is noncontributory. 18. Continue treatment per primary enterprise resource planning consultant, Dr. Tapia. 19. Case was discussed with Dr. Dagoberto Tapia. 20 d/w patient and questions answered Subjective Constitutional: Reports: fatigue - better, Denies: fever HEENT: Denies: congestion Respiratory: Denies: shortness of breath Cardiovascular: Denies: chest pain Gastrointestinal/Abdominal: Denies: diarrhea, nausea, vomiting Genitourinary: Denies: dysuria, frequency, hematuria Neurologic: Denies: headache Skin: Denies: rash Hematologic: Denies: bleeding Musculoskeletal: Denies: pain Allergies: Coded Allergies: No Known Allergies (Unverified , 10/26/13) Objective Vital Signs Last 24 Hour Vital Signs Date Time Temp Pulse Resp B/P Pulse Ox O2 Delivery O2 Flow Rate FiO2 10/23/16 08:00 96.3 70 18 112/67 96 Room Air 10/23/16 04:00 97.0 65 19 93/51 97 Room Air 10/23/16 00:43 97.0 76 20 115/44 95 Room Air 10/22/16 21:41 97.0 10/22/16 16:00 97.0 81 20 106/68 98 Room Air Height (Feet): 5 Height (Inches): 6.00 Weight (Pounds): 160 General Appearance: no acute distress HEENT: normocephalic, atraumatic, anicteric, mucous membranes moist, PERRL, EOMI, pharynx normal, supple, no JVD Respiratory/Chest: lungs clear, normal breath sounds, no respiratory distress, no accessory muscle use, crackles/rales - resolved Cardiovascular: normal rate, regular rhythm, no gallop/murmur, no JVD Abdomen: normal bowel sounds, soft, non tender, no organomegaly, non distended Genitourinary: other - no bay Extremities: no cyanosis Skin: no rash Neurologic/Psychiatric: drafter cartographic II-XII grossly normal, alert, oriented x 3, responsive Lymphatic: no neck adenopathy Musculoskeletal: no effusion Objective chest x-ray - negative Microbiology Date/Time Source Procedure Growth Status 10/20/16 13:42 Blood Blood Culture - Preliminary NO GROWTH AFTER 48 HOURS Resulted 10/20/16 13:38 Blood Blood Culture - Preliminary NO GROWTH AFTER 48 HOURS Resulted 10/20/16 14:05 Nasal Nares MRSA Culture - Final NO METHICILLIN RESISTANT STAPH AUREUS... Complete 10/20/16 13:38 Nasal Nares Influenza Types A,B Antigen (JANA) - Final Complete Laboratory Tests Test 10/23/16 05:00 White Blood Count 5.0 K/UL (4.8-10.8) Red Blood Count 4.81 M/UL (4.70-6.10) Hemoglobin 15.6 G/DL (14.2-18.0) Hematocrit 45.3 % (42.0-52.0) Mean Corpuscular Volume 94 FL (80-99) Mean Corpuscular Hemoglobin 32.3 PG (27.0-31.0) H Mean Corpuscular Hemoglobin Concent 34.3 G/DL (32.0-36.0) Red Cell Distribution Width 12.2 % (11.6-14.8) Platelet Count 179 K/UL (150-450) Mean Platelet Volume 6.3 FL (6.5-10.1) L Neutrophils (%) (Auto) 58.3 % (45.0-75.0) Lymphocytes (%) (Auto) 29.9 % (20.0-45.0) Monocytes (%) (Auto) 9.0 % (1.0-10.0) Eosinophils (%) (Auto) 2.0 % (0.0-3.0) Basophils (%) (Auto) 0.8 % (0.0-2.0) Sodium Level 136 mEQ/L (135-145) Potassium Level 3.5 mEQ/L (3.4-4.9) Chloride Level 96 mEQ/L (98-107) L Carbon Dioxide Level 25 mEQ/L (20-30) Anion Gap 15 (5-15) Blood Urea Nitrogen 9 mg/dL (7-23) Creatinine 0.6 mg/dL (0.7-1.2) L Estimat Glomerular Filtration Rate > 60 mL/min (>60) Glucose Level 97 mg/dL (74-106) Calcium Level 8.8 mg/dL (8.6-10.2) Current Medications Medications (Trade) Dose Ordered Sig/Jeff Route PRN Reason Start Time Stop Time Status Last Admin Dose Admin Acetaminophen (Tylenol) 650 mg Q4H PRN ORAL Mild Pain/Temp > 100.5 10/21/16 01:45 11/20/16 01:44 10/22/16 20:42 Aripiprazole (Abilify) 20 mg DAILY ORAL 10/21/16 09:00 11/20/16 08:59 10/23/16 09:57 Azithromycin/ Dextrose (Zithromax/D5W) 275 ml @ 275 mls/hr Q24HRS IV 10/21/16 18:00 10/27/16 18:59 10/22/16 18:29 Ceftriaxone Sodium 1 gm/ Dextrose 55 ml @ 110 mls/hr Q24H IVPB 10/21/16 16:00 10/28/16 15:59 10/22/16 16:16 Darunavir (Prezista) 800 mg DAILY ORAL 10/21/16 12:00 11/20/16 11:59 10/23/16 09:57 Dolutegravir Sodium (Tivicay) 50 mg DAILY ORAL 10/21/16 12:00 11/20/16 11:59 10/23/16 09:57 Finasteride (Proscar) 5 mg DAILY ORAL 10/21/16 09:00 11/20/16 08:59 10/23/16 09:57 Oseltamivir Phosphate (Tamiflu) 75 mg TWICE A DAY ORAL 10/21/16 09:00 10/26/16 08:59 10/23/16 09:57 Ritonavir (Norvir) 100 mg Q12HR ORAL 10/21/16 12:00 11/20/16 11:59 10/23/16 09:57 EDGAR BLACK Oct 23, 2016 12:53
[2016-10-23 16:00] VITALS: BP 108/79
[2016-10-23] MEDS: cefTRIAXone 1 GM in D5W 55 ML IVPB SCH (16:12)
[2016-10-23] MEDS: Azithromycin 500 MG in D5W 275 ML IV SCH (17:39)
--- NOTE | 2016-10-23 17:46 | Internal Med Progress Note ---
Subjective Date of Service: Oct 23, 2016 Physician Name Dagoberto Miller Attending Physician Dagoberto Miller Current Medications Medications (Trade) Dose Ordered Sig/Jeff Route PRN Reason Start Time Stop Time Status Last Admin Dose Admin Acetaminophen (Tylenol) 650 mg Q4H PRN ORAL Mild Pain/Temp > 100.5 10/21/16 01:45 11/20/16 01:44 10/22/16 20:42 Aripiprazole (Abilify) 20 mg DAILY ORAL 10/21/16 09:00 11/20/16 08:59 10/23/16 09:57 Azithromycin/ Dextrose (Zithromax/D5W) 275 ml @ 275 mls/hr Q24HRS IV 10/21/16 18:00 10/27/16 18:59 10/23/16 17:39 Ceftriaxone Sodium 1 gm/ Dextrose 55 ml @ 110 mls/hr Q24H IVPB 10/21/16 16:00 10/28/16 15:59 10/23/16 16:12 Darunavir (Prezista) 800 mg DAILY ORAL 10/21/16 12:00 11/20/16 11:59 10/23/16 09:57 Dolutegravir Sodium (Tivicay) 50 mg DAILY ORAL 10/21/16 12:00 11/20/16 11:59 10/23/16 09:57 Finasteride (Proscar) 5 mg DAILY ORAL 10/21/16 09:00 11/20/16 08:59 10/23/16 09:57 Oseltamivir Phosphate (Tamiflu) 75 mg TWICE A DAY ORAL 10/21/16 09:00 10/26/16 08:59 10/23/16 17:39 Ritonavir (Norvir) 100 mg Q12HR ORAL 10/21/16 12:00 11/20/16 11:59 10/23/16 09:57 Allergies: Coded Allergies: No Known Allergies (Unverified , 10/26/13) ROS Limited/Unobtainable: No Constitutional: Reports: chills, fever HEENT: Reports: no symptoms Cardiovascular: Reports: no symptoms Respiratory: Reports: cough, shortness of breath Gastrointestinal/Abdominal: Reports: no symptoms Genitourinary: Reports: no symptoms Neurologic/Psychiatric: Reports: no symptoms Subjective 50 YO M with HIV/AIDS admitted with Influenza A and pneumonia. C/O cough Objective Last Vital Signs Date Time Temp Pulse Resp B/P Pulse Ox O2 Delivery O2 Flow Rate FiO2 10/23/16 16:00 97.9 78 19 108/79 96 Room Air 10/21/16 08:15 2.0 Laboratory Tests Test 10/23/16 05:00 White Blood Count 5.0 K/UL (4.8-10.8) Red Blood Count 4.81 M/UL (4.70-6.10) Hemoglobin 15.6 G/DL (14.2-18.0) Hematocrit 45.3 % (42.0-52.0) Mean Corpuscular Volume 94 FL (80-99) Mean Corpuscular Hemoglobin 32.3 PG (27.0-31.0) H Mean Corpuscular Hemoglobin Concent 34.3 G/DL (32.0-36.0) Red Cell Distribution Width 12.2 % (11.6-14.8) Platelet Count 179 K/UL (150-450) Mean Platelet Volume 6.3 FL (6.5-10.1) L Neutrophils (%) (Auto) 58.3 % (45.0-75.0) Lymphocytes (%) (Auto) 29.9 % (20.0-45.0) Monocytes (%) (Auto) 9.0 % (1.0-10.0) Eosinophils (%) (Auto) 2.0 % (0.0-3.0) Basophils (%) (Auto) 0.8 % (0.0-2.0) Sodium Level 136 mEQ/L (135-145) Potassium Level 3.5 mEQ/L (3.4-4.9) Chloride Level 96 mEQ/L (98-107) L Carbon Dioxide Level 25 mEQ/L (20-30) Anion Gap 15 (5-15) Blood Urea Nitrogen 9 mg/dL (7-23) Creatinine 0.6 mg/dL (0.7-1.2) L Estimat Glomerular Filtration Rate > 60 mL/min (>60) Glucose Level 97 mg/dL (74-106) Calcium Level 8.8 mg/dL (8.6-10.2) Intake and Output 10/22/16 10/23/16 19:00 07:00 Intake Total 295 ml 515 ml Balance 295 ml 515 ml Intake Oral 240 ml 240 ml IV Total 55 ml 275 ml # Voids 6 Objective General Appearance: WD/WN, no apparent distress, alert EENT: PERRL/EOMI, normal ENT inspection Neck: non-tender, normal alignment, supple Cardiovascular: normal peripheral pulses, normal rate, regular rhythm, no gallop/murmur, no JVD Respiratory/Chest: no accessory muscle use, crackles/rales, rhonchi - bilaterally, expiratory wheezing Abdomen: normal bowel sounds, non tender, soft, no organomegaly, no mass Extremities: normal range of motion Neurologic: shade cutter II-XII grossly normal, no motor/sensory deficits Skin: normal pigmentation, warm/dry Assessment/Plan Problem List: (1) Hepatitis C (2) Schizoaffective disorder, bipolar type Assessment & Plan: Continue abilify (3) AIDS Assessment & Plan: Cont HAART per ID (4) HIV disease (5) Kaposi sarcoma (6) Influenza A Assessment & Plan: Continue Tamiflu. See ID note. (7) Fever Assessment & Plan: Afebrile. (8) Pneumonia Assessment & Plan: Continue ceftriaxone and azithromycin per ID. Change to oral antibiotics per ID prior to discharge. Status: progressing DAGOBERTO MILLER Oct 23, 2016 17:46
[2016-10-23 19:43] VITALS: BP 112/74
[2016-10-24] VITALS: BP 115/75
[2016-10-24 04:00] VITALS: BP 106/66
[2016-10-24 08:03] VITALS: BP 129/74
[2016-10-24] MEDS: Oseltamivir 75mg cap ORAL SCH (08:52)
[2016-10-24] MEDS: Ritonavir 100mg tab ORAL SCH (08:52)
[2016-10-24] MEDS: Dolutegravir Sodium 50mg tab ORAL SCH (08:53)
[2016-10-24] MEDS: ARIPiprazole 10mg tab ORAL SCH (08:53)
[2016-10-24] MEDS ORDERED: NS 275ml ONE (10:29)
[2016-10-24] MEDS ORDERED: Tubing Blood Filter IV ONE (10:29)
--- NOTE | 2016-10-24 13:06 | Internal Med Progress Note ---
Subjective Date of Service: Oct 24, 2016 Physician Name Dagoberto Miller Attending Physician Dagoberto Miller Allergies: Coded Allergies: No Known Allergies (Unverified , 10/26/13) Subjective 50 YO M with HIV/AIDS admitted with Influenza A and pneumonia. C/O cough Objective Last Vital Signs Date Time Temp Pulse Resp B/P Pulse Ox O2 Delivery O2 Flow Rate FiO2 10/24/16 08:03 97.3 73 21 129/74 99 Room Air 10/21/16 08:15 2.0 Intake and Output 10/23/16 10/24/16 19:00 07:00 Intake Total 930 ml 610 ml Balance 930 ml 610 ml Intake Oral 600 ml 610 ml IV Total 330 ml # Voids 2 4 # Bowel Movements 1 Objective General Appearance: WD/WN, no apparent distress, alert EENT: PERRL/EOMI, normal ENT inspection Neck: non-tender, normal alignment, supple Cardiovascular: normal peripheral pulses, normal rate, regular rhythm, no gallop/murmur, no JVD Respiratory/Chest: no accessory muscle use, crackles/rales, rhonchi - bilaterally, expiratory wheezing Abdomen: normal bowel sounds, non tender, soft, no organomegaly, no mass Extremities: normal range of motion Neurologic: pool hand II-XII grossly normal, no motor/sensory deficits Skin: normal pigmentation, warm/dry Assessment/Plan Problem List: (1) Hepatitis C (2) Schizoaffective disorder, bipolar type Assessment & Plan: Continue abilify (3) AIDS Assessment & Plan: Cont HAART per ID (4) HIV disease (5) Kaposi sarcoma (6) Influenza A Assessment & Plan: Continue Tamiflu. See ID note. (7) Fever Assessment & Plan: Afebrile. (8) Pneumonia Assessment & Plan: Continue ceftriaxone and azithromycin per ID. Change to oral antibiotics per ID prior to discharge. Assessment/Plan Patient left against medical advise earlier today. DAGOBERTO MILLER Oct 24, 2016 13:06
--- NOTE | 2016-10-25 17:00 | Discharge Summary ---
Discharge Summary Hospital Course Date of Admission Oct 20, 2016 at 14:45 Date of Discharge Oct 24, 2016 at 10:30 Admitting Diagnosis PNEUMONIA, influenza HPI Alec Farnsworth is a 50 year old male who was admitted on Oct 20, 2016 at 14:45 for Pneumonia/Influenza Hospital Course [id number] Discharge Discharge Disposition Patient left AMA Discharge Diagnoses: Catherine Ingram NP Oct 25, 2016 17:00
--- NOTE | 2016-10-26 04:08 | Discharge Summary 2 SIG ---
DATE OF ADMISSION: 10/20/2016 DATE OF DISCHARGE: 10/24/2016 GAS ENGINE PERFORMANCE ENGINEER: Lynnette Calderon M.D. BRIEF HOSPITAL COURSE: The patient is a 50-year-old male with history of HIV presented with complaints of cough, fever, chills, and phlegm for two days. On evaluation at ED, he was found to have influenza A. Dr. Calderon was consulted. The patient was started on Tamiflu, azithromycin and ceftriaxone. He was continued on anti-retroviral therapy. T-cell count over 200. However, full treatment was not carried out as the patient signed out against medical advice. FINAL DIAGNOSES: 1. Influenza A. 2. Pneumonia. 3. Human immunodeficiency virus. 4. Acquired immunodeficiency syndrome. 5. Hepatitis C. 6. Schizoaffective disorder, bipolar type. 7. Kaposi sarcoma. Dagoberto Tapia M.D. I have been assigned to dictate discharge summary on this account and I was not involved in the patient's management. Catherine Ingram N.P. DR: OSBALDO JOB#: [id number] CC: FRANK
--- NOTE | 2016-10-26 16:34 | Cardiology Report ---
APPROVED REPORT EKG Measurement Heart [id number] Sinus tachycardia Otherwise normal ECG
== END 2016-10-24 10:30 | disposition left against medical advice (07) | DRG 975 ==
LOC: ENRESERVDT → ENRESERVTM → EMR 13:35 → 4E 14:45 → EDBEDREQ 15:13 → EMR 16:46
DX: J09.X1 Influenza due to identified novel influenza A virus with pneumonia (principal); B20 Human immunodeficiency virus [HIV] disease; E87.1 Hypo-osmolality and hyponatremia; N17.9 Acute kidney failure, unspecified; J18.8 Other pneumonia, unspecified organism; E86.0 Dehydration; C46.9 Kaposi's sarcoma, unspecified; B19.20 Unspecified viral hepatitis C without hepatic coma; F25.0 Schizoaffective disorder, bipolar type; Z72.0 Tobacco use; Y95 Nosocomial condition; Z53.21 Procedure and treatment not carried out due to patient leaving prior to being seen by health care provider
CPT/HCPCS: 36415; 71010; 80048; 80053; 81003; 82550; 82553; 83605; 83615; 83880; 84484; 85007; 85025; 86710; 87040; 87081; 93005; 94640; 94664

== ENCOUNTER 2019-06-11 08:53 | Outpatient (CLI) | payer MEDICARE, MEDICAID ==
[~2019-06-11] VITALS: Ht 167.6 cm; Wt 80.7 kg
[~2019-06-11 08:53] MED LIST changes: +Heparin1,000 units/500ml Premix(Conc:2 units/ml) INJ SCH; +Lidocaine 1% Plain 30 ml INJ SCH
--- NOTE | 2019-06-11 10:27 | Pre-Procedure Note/Attestation ---
Pre-Procedure Note/Attestation Complete Prior to Procedure Planned Procedure: not applicable Procedure Narrative: PICC Indications for Procedure Pre-Operative Diagnosis: needs shelter IV therapy Attestation I attest that I discussed the nature of the procedure; its benefits; risks and complications; and alternatives (and the risks and benefits of such alternatives ), prior to the procedure, with the patient (or the patient's legal customer counter representative). I attest that, if there was a reasonable possibility of needing a blood transfusion, the patient (or the patient's legal customer counter representative) was given the [facility] standardized written summary, pursuant to the [place] Blood Safety Act ([place] Health and Safety Code # 1645, as amended). I attest that I re-evaluated the patient just prior to the surgery and that there has been no change in the patient's H&P, except as documented below: Frantz Birmingham MD Jun 11, 2019 10:27
--- NOTE | 2019-06-11 10:29 | Brief Operative Note ---
Immediate Post Operative Note Operative Note Pre-op Diagnosis: needs intermediate school teacher IV therapy Procedure: PICC, LUE venogram Post-op Diagnosis: same as pre-op Findings: other - central venoocclusive dz Left Surgeon: Domenica Eagle Anesthesia: local Specimen: none Complications: none Fluids: none Implant(s) used?: No Frantz Eagle MD Jun 11, 2019 10:29
--- NOTE | 2019-06-11 11:08 | Diagnostic Imaging Report ---
Indications: Needs long-term IV access Technique: Ultrasound confirms patent compressible left basilic vein. Total sterile technique, including sterile probe cover and sterile gel, hat, mask, sterile gown, large sterile drape, and preparation with 2% chlorhexidine utilized. Local anesthesia with 1% lidocaine. Under real-time ultrasound guidance, puncture basilic vein using 21-gauge needle, documented and archived, passage 0.018 guidewire under direct fluoroscopy; guidewire would not pass beyond the axilla. The sheath was inserted, and a limited venogram was performed, demonstrating venoocclusive disease within the axilla. Attempts made at accessing the brachial vein, but similarly the guidewire would not pass beyond the axilla. Attention turned to the left arm. Ultrasound confirms patent compressible right cephalic vein. Total sterile technique, including sterile probe cover and sterile gel, hat, mask, sterile gown, large sterile drape, and preparation with 2% chlorhexidine utilized. Local anesthesia with 1% lidocaine. Under real-time ultrasound guidance, puncture cephalic vein using 21-gauge needle, documented and archived, passage 0.018 guidewire under direct fluoroscopy, which was used to determine appropriate catheter length, exchange for 4 [place] peel-away sheath. 4 [place] Bard dual-lumen power PICC cut to 44 cm. It was inserted through the peel-away sheath. Peel-away sheath and guidewire removed. Catheter fixed to the skin. Both catheter ports aspirated and flushed. Patient tolerated procedure well, without immediate complication. Digital radiograph documents satisfactory catheter tip position, at the cavoatrial junction. Total fluoroscopy time 70 1. seconds. Total dose area product 0.7135 mGym2 Total number of images: 3 Impression: Successful placement of right cephalic venous PICC under sonographic and fluoroscopic guidance, as described above. Radiographic evidence of left axillary venoocclusive disease, probably related to prior PICC placement
== END 2019-06-11 10:53 | disposition home or self-care (01) ==
LOC: RAD 08:53
DX: Z79.899 Other long term (current) drug therapy (principal); L03.116 Cellulitis of left lower limb; L03.115 Cellulitis of right lower limb
CPT/HCPCS: 36569; 75820; 76937; J1644; J2001; Q9967

== ENCOUNTER 2019-06-22 17:31 | Emergency (ER) | payer MEDICARE, MEDICAID ==
[~2019-06-22] VITALS: Ht 167.6 cm; Wt 80.7 kg
[~2019-06-22 17:31] MED LIST changes: -Heparin1,000 units/500ml Premix(Conc:2 units/ml) INJ SCH; -Lidocaine 1% Plain 30 ml INJ SCH
[2019-06-22 17:51] VITALS: BP 131/76
--- NOTE | 2019-06-22 17:55 | NUR ---
ED Nurse Note: Pt walked into ER with c/o generalized rashes and allergic reaction to medication. Pt has swollen tongue and lips. Generalized rashes noted. Pt c/o right foot pain 8/10. Pt took two different antibiotics, one is Vancomycin, pt cannot recall other antibiotic. Pt calm and cooperative. Pt ambulatory aaox4. No acute distress noted. Pt is in gown and placed on ekg monitor tech.
--- NOTE | 2019-06-22 17:58 | NUR ---
ED Nurse Note: ERPA at bedside assessing patient.
--- NOTE | 2019-06-22 18:21 | NUR ---
ED Nurse Note: ERMD at bedside.
[2019-06-22] MEDS ORDERED: DiphenhydrAMINE 50mg/ml Inj IVP ONE (18:30)
[2019-06-22] MEDS ORDERED: Solu-MEDROL 125mg Inj IVP ONE (18:30)
--- NOTE | 2019-06-22 18:44 | NUR ---
ED Nurse Note: unable to withdraw blood from PICC line. blood was drown from peripheral IV. blood and urine sent to lab.
--- NOTE | 2019-06-22 19:08 | NUR ---
HAND-OFF: Report given to ASHLEY Burton. no orders to carry at this moment.
[2019-06-22 19:11] LABS: ANION GAP 7 mmol/L (5-15); BLOOD UREA NITROGEN 9 mg/dL (7-18); CALCIUM 8.7 MG/DL (8.5-10.1); CARBON DIOXIDE 28 MMOL/L (21-32); CHLORIDE 103 MMOL/L (98-107); CREATININE 1.1 MG/DL (0.55-1.30); POTASSIUM 3.9 MMOL/L (3.5-5.1); SODIUM 138 MMOL/L (136-145)
[2019-06-22 19:14] LABS: ALANINE AMINOTRANSFERASE 35 U/L (12-78); ALBUMIN 3.5 G/DL (3.4-5.0); ALBUMIN/GLOBULIN RATIO 0.9 (1.0-2.7); ALKALINE PHOSPHATASE 104 U/L (46-116); ASPARTATE AMINO TRANSFERASE 22 U/L (15-37); BILIRUBIN,TOTAL 0.4 MG/DL (0.2-1.0)
[2019-06-22 19:15] LABS: APPEARANCE,URINE CLEAR; BILIRUBIN, URINE NEGATIVE (NEGATIVE); COLOR,URINE AMBER; GLUCOSE, URINE (UA) NEGATIVE (NEGATIVE); KETONES,URINE NEGATIVE (NEGATIVE); LEUKOCYTE ESTERASE ,URINE NEGATIVE (NEGATIVE); NITRITE,URINE NEGATIVE (NEGATIVE); PH,URINE 6.5 (4.5-8.0); PROTEIN,URINE NEGATIVE (NEGATIVE); UROBILINOGEN,URINE NORMAL MG/DL (0.0-1.0)
[2019-06-22 20:16] VITALS: BP 129/79
--- NOTE | 2019-06-22 20:16 | NUR ---
AMA: SEE AMA FORM. Pt signed AMA, left the facility with no issues and was cooperative.
[2019-06-22 20:22] LABS: BASOPHILS % (AUTO) 1.3 % (0.0-2.0); HEMATOCRIT 35.9 % (42.0-52.0); HEMOGLOBIN 13.1 G/DL (14.2-18.0); LYMPHOCYTES % (AUTO) 22.6 % (20.0-45.0); MEAN CORPUSCULAR VOLUME 95 FL (80-99); MONOCYTES % (AUTO) 18.7 % (1.0-10.0); NEUTROPHILS % (AUTO) 49.4 % (45.0-75.0); PLATELET COUNT 141 K/UL (150-450); RED BLOOD COUNT 3.77 M/UL (4.70-6.10); RED CELL DISTRIBUTION WIDTH 11.6 % (11.6-14.8); WHITE BLOOD COUNT 5.6 K/UL (4.8-10.8)
[2019-06-22] MEDS ORDERED: Heparin 5000 units/ml inj SUBQ SCH (21:00)
[2019-06-22] MEDS ORDERED: Docusate 100mg cap ORAL SCH (21:00)
[2019-06-22] MEDS ORDERED: Solu-MEDROL 125mg Inj IVP SCH (22:00)
--- NOTE | 2019-06-22 22:33 | Emergency Room Report ---
History of Present Illness General Chief Complaint: Allergic Reaction Source: Patient Present Illness HPI 53-year-old male presents ED for evaluation. States he has a rash all over his body along with lip swelling. Started about 2 weeks ago. History of HIV. Was being treated with vancomycin for cellulitis on his legs. Has a PICC line in his right arm. Has been receiving vancomycin for nearly 1 month now and states about 2 weeks ago he started with this rash. States is very itchy. Also notes lip swelling. Denies shortness of breath or throat swelling. Denies any prior known food or drug allergies. No other aggravating relieving factors. Denies any other associated symptoms Allergies: Coded Allergies: VANCOMYCIN (Verified Allergy, Unknown, 06/22/19) Patient History Past Medical History: HIV Past Surgical History: none Pertinent Family History: none Social History: Denies: smoking, alcohol use, drug use Immunizations: UTD Reviewed Nursing Documentation: PMH: Agreed; PSxH: Agreed Nursing Documentation-PMH Past Medical History: No Stated History Hx Cardiac Problems: Yes Hx Cancer: No Hx Gastrointestinal Problems: No Hx Neurological Problems: No Hx Headaches: Yes Review of Systems All Other Systems: negative except mentioned in HPI Physical Exam Vital Signs Date Time Temp Pulse Resp B/P (MAP) Pulse Ox O2 Delivery O2 Flow Rate FiO2 06/22/19 17:36 99.0 108 19 137/65 (89) 94 Room Air Sp02 EP Interpretation: reviewed, normal General Appearance: no apparent distress, alert, GCS 15, non-toxic Head: normocephalic, atraumatic Eyes: bilateral eye normal inspection, bilateral eye PERRL ENT: hearing grossly normal, normal pharynx, no angioedema, normal voice Neck: full range of motion, supple/symm/no masses Respiratory: chest non-tender, lungs clear, normal breath sounds, speaking full sentences Cardiovascular #1: regular rate, rhythm, no edema Cardiovascular #2: 2+ carotid (R), 2+ carotid (L), 2+ radial (R), 2+ radial (L) , 2+ dorsalis pedis (R), 2+ dorsalis pedis (L) Gastrointestinal: normal bowel sounds, non tender, soft, non-distended, no guarding, no rebound Rectal: deferred Genitourinary: normal inspection, no CVA tenderness Musculoskeletal: back normal, gait/station normal, normal range of motion, non- tender Neurologic: alert, oriented x3, responsive, motor strength/tone normal, sensory intact, speech normal Psychiatric: judgement/insight normal, memory normal, mood/affect normal, no suicidal/homicidal ideation Reflexes: 3+ bicep (R), 3+ bicep (L), 3+ tricep (R), 3+ tricep (L), 3+ knee (R) , 3+ knee (L) Skin: rash - diffuse macular erythematous rash to arms, chest, abdomen Lymphatic: no adenopathy Medical Decision Making Diagnostic Impression: Primary Impression: Allergic reaction caused by a drug Qualified Codes: T78.40XA - Allergy, unspecified, initial encounter ER Course Hospital Course 53 yo M presents to ED with rash after receiving vancomycin Differential diagnoses include: allergic reaction, angioedema, anaphylaxi Clinical course Patient placed on stretcher. 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 After initial history and exam reveals male in no acute distress. There is some pronounced lower lip swelling. No tongue swelling. No stridor. Lungs clear. There is a diffuse macular erythematous rash to the chest, abdomen, arms and legs. Ordered IV fluids, prednisone, Benadryl, Solu-Medrol Labs reviewed - electrolytes okay, no leukocytosis, hemoglobin/hematocrit okay Dr Adams consulted - agrees with assessment of reaction to vancomycin. admitted to Dr Jacques's service Patient decided to leave AMA. Understands the risks of leaving. Patient has competency to make his own decisions. Signed AMA form. i. I feel this is a highly complex case requiring extensive working including EKG/Rhythm strip, Xray/CT/US, Blood/urine lab work, repeat exams while in ED, and administration of strong opiates/narcotics for pain control, admission to hospital or close patient follow up. Diagnosis - allergic reaction caused by a drug patient left AMA Labs Test 06/22/19 18:30 06/22/19 18:40 06/22/19 19:40 Sodium Level 138 MMOL/L (136-145) Potassium Level 3.9 MMOL/L (3.5-5.1) Chloride Level 103 MMOL/L (98-107) Carbon Dioxide Level 28 MMOL/L (21-32) Anion Gap 7 mmol/L (5-15) Blood Urea Nitrogen 9 mg/dL (7-18) Creatinine 1.1 MG/DL (0.55-1.30) Estimat Glomerular Filtration Rate > 60 mL/min (>60) Glucose Level 115 MG/DL (74-106) Lactic Acid Level 1.20 mmol/L (0.4-2.0) Calcium Level 8.7 MG/DL (8.5-10.1) Total Bilirubin 0.4 MG/DL (0.2-1.0) Aspartate Amino Transf (AST/SGOT) 22 U/L (15-37) Alanine Aminotransferase (ALT/SGPT) 35 U/L (12-78) Alkaline Phosphatase 104 U/L (46-116) Total Protein 7.6 G/DL (6.4-8.2) Albumin 3.5 G/DL (3.4-5.0) Globulin 4.1 g/dL Albumin/Globulin Ratio 0.9 (1.0-2.7) Lipase 89 U/L (73-393) Urine Color Clari Urine Appearance Clear Urine pH 6.5 (4.5-8.0) Urine Specific [place] 1.025 (1.005-1.035) Urine Protein Negative (NEGATIVE) Urine Glucose (UA) Negative (NEGATIVE) Urine Ketones Negative (NEGATIVE) Urine Blood 1+ (NEGATIVE) Urine Nitrite Negative (NEGATIVE) Urine Bilirubin Negative (NEGATIVE) Urine Ictotest Negative (NEGATIVE) Urine Urobilinogen Normal MG/DL (0.0-1.0) Urine Leukocyte Esterase Negative (NEGATIVE) Urine RBC 5-10 /HPF (0 - 0) Urine WBC 0-2 /HPF (0 - 0) Urine Squamous Epithelial Cells Occasional /LPF Urine Bacteria Few /HPF (NONE) Urine Mucus Moderate /LPF (NONE/OCC) White Blood Count 5.6 K/UL (4.8-10.8) Red Blood Count 3.77 M/UL (4.70-6.10) Hemoglobin 13.1 G/DL (14.2-18.0) Hematocrit 35.9 % (42.0-52.0) Mean Corpuscular Volume 95 FL (80-99) Mean Corpuscular Hemoglobin 34.7 PG (27.0-31.0) Mean Corpuscular Hemoglobin Concent 36.5 G/DL (32.0-36.0) Red Cell Distribution Width 11.6 % (11.6-14.8) Platelet Count 141 K/UL (150-450) Mean Platelet Volume 6.5 FL (6.5-10.1) Neutrophils (%) (Auto) 49.4 % (45.0-75.0) Lymphocytes (%) (Auto) 22.6 % (20.0-45.0) Monocytes (%) (Auto) 18.7 % (1.0-10.0) Eosinophils (%) (Auto) 8.0 % (0.0-3.0) Basophils (%) (Auto) 1.3 % (0.0-2.0) Last Vital Signs Date Time Temp Pulse Resp B/P (MAP) Pulse Ox O2 Delivery O2 Flow Rate FiO2 06/22/19 17:51 98.3 103 14 131/76 100 Room Air Status: unchanged Disposition: AGAINST MEDICAL ADVICE Condition: Stable Referrals: NON PHYSICIAN (PCP) Tien Diaz MD Jun 22, 2019 22:33
== END 2019-06-22 20:16 | disposition left against medical advice (07) ==
LOC: EMR 17:59 → EDBEDREQ 20:06 → EMR 20:16
DX: T36.8X5A Adverse effect of other systemic antibiotics, initial encounter (principal); L27.0 Generalized skin eruption due to drugs and medicaments taken internally; B20 Human immunodeficiency virus [HIV] disease; Z88.1 Allergy status to other antibiotic agents; Y92.9 Unspecified place or not applicable
CPT/HCPCS: 36415; 80053; 81003; 83605; 83690; 85025; 87040; 96361; 96374; 96375; 99284; J1200; J2930; S0028; J7030